=== PATIENT | male | born 1980 | race Caucasian/White ===

== ENCOUNTER 2019-12-01 07:04 | Day surgery (SDC) | payer OTHER ==
[2019-12-01] MEDS ORDERED: LACTATED RINGERS 1,000 ML IV ONE (07:08)
[2019-12-01] MEDS ORDERED: BUPIVACAINE 0.25% PF 30 ML VIAL ONE (07:14)
[2019-12-01] MEDS ORDERED: EPINEPHrine 1 MG/ML AMP ONE (07:14)
[2019-12-01] MEDS ORDERED: CEFAZOLIN SODIUM IN 0.9 % NACL 2 GM/100 ML BAG IV ONE (07:26)
--- NOTE | 2019-12-01 07:52 | ANESTHESIA ---
Pre-Anesthesia VS, & Labs - Diagnosis R ACL and meniscus tear - Procedure R AACL reconstruction, hamstring graft, possible meniscus repair Vital Signs: Temp Pulse Resp BP Pulse Ox 36.3 C L 83 12 136/98 H 98 12/01/19 07:08 12/01/19 07:08 12/01/19 07:08 12/01/19 07:08 12/01/19 07:08 Height 6 ft Weight (kg) 90.72 kg - NPO >8 hours Home Medications and Allergies Home Medications: Ambulatory Orders Divalproex Sodium [Depakote] 750 mg PO BID 11/26/19 SUMAtriptan succinate [Sumatriptan Succinate] 6 mg SQ 11/26/19 SUMAtriptan succinate [Sumatriptan Succinate] 100 mg PO 11/26/19 Divalproex Sodium [Depakote] 750 mg PO BID 11/26/19 SUMAtriptan succinate [Sumatriptan Succinate] 6 mg SQ 11/26/19 SUMAtriptan succinate [Sumatriptan Succinate] 100 mg PO 11/26/19 Allergies/Adverse Reactions: Allergies Allergy/AdvReac Type Severity Reaction Status Date / Time No Known Drug Allergies Allergy Verified 11/26/19 12:28 Anes History & Medical History - Anesthetic History Anesthesia Complications: reports: No previous complications Family history of Anesthesia Complications: Denies Family history of Malignant Hyperthermia: Denies - Medical History Cardiovascular: reports: Pulmonary embolism (2 weeks before ACL surgery) Pulmonary: reports: Sleep apnea, CPAP use Gastrointestinal: reports: None Urinary: reports: None Musculoskeletal: reports: Other Endocrine/Autoimmune: reports: None Skin: reports: None - Surgical History General: Appendectomy Eyes Ears Nose Throat (EENT): Tonsil/Adenoidectomy Orthopedic: ACL reconstruction, Other Exam General: Alert, Oriented x3, Cooperative Dental: WNL Mouth Openin Fingerbreadth Neck Mobility: Normal Mallampati classification: I Thyromental Distance: 4-6 cm Respiratory: Lungs clear, Normal breath sounds, No respiratory distress Cardiovascular: Regular rate Neurological: Normal speech Mental/Cognitive Status: Alert/Oriented X3, Normal for patient Cognitive Status: Within normal limits Plan Anesthesia Type: General, Femoral Block Consent for Procedure(s) Verified and Reviewed: Yes Code Status: Attempt Resuscitation ASA classification: 2-Mild systemic disease Is this case an emergency?: No
[2019-12-01] MEDS ORDERED: ROPIVACAINE 0.5% PF 20 ML AMPULE ONE (08:23)
[2019-12-01] MEDS ORDERED: LIDOCAINE-MPF 2% 5 ML VIAL IM ONE (08:38)
[2019-12-01] MEDS ORDERED: KETOROLAC 30 MG/ML VIAL IVP ONE (08:38)
[2019-12-01] MEDS ORDERED: PROPOFOL 200 MG/20 ML VIAL IVP ONE (08:38)
[2019-12-01] MEDS ORDERED: fentaNYL 100 MCG/2 ML VIAL IVP ONE (08:38)
[2019-12-01] MEDS ORDERED: ACETAMINOPHEN 1,000 MG/100 ML 100 ML IV ONE (08:38)
[2019-12-01] MEDS ORDERED: MIDAZOLAM 2 MG/2 ML VIAL IVP ONE (08:38)
[2019-12-01] MEDS ORDERED: ONDANSETRON 4 MG/2 ML VIAL IVP ONE (08:38)
[2019-12-01] MEDS ORDERED: EPINEPHrine 1 MG/ML AMP IVP ONE (09:06)
[2019-12-01] MEDS ORDERED: BUPIVACAINE 0.25% PF 30 ML VIAL SUBQ ONE ×2 (09:07)
[2019-12-01] MEDS ORDERED: ONDANSETRON 4 MG/2 ML VIAL IVP PRN (11:06)
[2019-12-01] MEDS: fentaNYL 100 MCG/2 ML VIAL ONE ×2 (11:06→11:11)
[2019-12-01] MEDS ORDERED: oxyCODONE 5 MG TABLET PO PRN (11:06)
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
[2019-12-01] MEDS: HYDROmorphone 1 MG/ML CARPUJECT ONE ×8 (11:23→11:59)
[2019-12-01] MEDS ORDERED: HYDROmorphone 1 MG/ML CARPUJECT ONE (11:56)
[2019-12-01] MEDS ORDERED: oxyCODONE 5 MG TABLET ONE (12:36)
[2019-12-01] MEDS ORDERED: ONDANSETRON 4 MG/2 ML VIAL ONE (12:36)
[2019-12-01] MEDS: LORazepam 2 MG/ML VIAL ONE ×2 (14:20→14:41)
[2019-12-01] MEDS ORDERED: LACTATED RINGERS 500 ML IV ONE (14:38)
[2019-12-01 14:49] VITALS: BP 122/95
== END 2019-12-01 07:05 | disposition home or self-care (01) ==
LOC: SDS 07:04
PROVIDERS: ATTEND Orthopaedic Surgery
DX: S83.511A Sprain of anterior cruciate ligament of right knee, initial encounter (principal); S83.241A Other tear of medial meniscus, current injury, right knee, initial encounter

== ENCOUNTER 2020-07-26 07:18 | Day surgery (SDC) | payer OTHER ==
[~2020-07-26 07:18] MED LIST: CEFAZOLIN SODIUM IN 0.9 % NACL 2 GM/100 ML BAG IV ONE
[2020-07-26] MEDS ORDERED: BUPIVACAINE 0.25% PF 30 ML VIAL ONE (07:36)
[2020-07-26] MEDS ORDERED: EPINEPHrine 1 MG/ML AMP ONE (07:36)
[2020-07-26] MEDS ORDERED: ePHEDrine 50 MG/ML VIAL IVP PRN ×2 (08:19→09:10)
[2020-07-26] MEDS ORDERED: MORPHINE 2 MG/ML CARPUJECT IVP PRN ×2 (08:19→09:10)
[2020-07-26] MEDS ORDERED: ONDANSETRON 4 MG/2 ML VIAL IVP PRN ×3 (08:19→10:57)
[2020-07-26] MEDS ORDERED: METOCLOPRAMIDE 10 MG/2 ML VIAL IVP PRN (08:19)
[2020-07-26] MEDS ORDERED: ATROPINE ABBOJECT 1 MG/10 ML SYRINGE IVP PRN ×2 (08:19→09:10)
[2020-07-26] MEDS ORDERED: NALOXONE 0.4 MG/ML VIAL IVP PRN ×2 (08:19→09:10)
--- NOTE | 2020-07-26 08:19 | ANESTHESIA ---
Pre-Anesthesia VS, & Labs - Diagnosis right knee meniscus tear - Procedure right knee arthroscopy, meniscus repair Vital Signs: Temp Pulse Resp BP Pulse Ox 36.8 C 75 16 154/109 H 100 07/26/20 07:40 07/26/20 07:40 07/26/20 07:40 07/26/20 07:40 07/26/20 07:40 Height: 6 ft Weight (kg): 97.8 kg Body Mass Index: 29.2 BMI Classification: Overweight - NPO >8 hours - Lab Results Lab results reviewed: Yes Home Medications and Allergies Home Medications: Ambulatory Orders Eszopiclone [Lunesta] 3 mg PO QPM 07/08/20 Sertraline HCl [Zoloft] 200 mg PO 07/08/20 buPROPion HCl [Bupropion Xl] 450 mg PO 07/08/20 SUMAtriptan succinate [Sumatriptan Succinate] 6 mg SQ 11/26/19 SUMAtriptan succinate [Sumatriptan Succinate] 100 mg PO 11/26/19 Eszopiclone [Lunesta] 3 mg PO QPM 07/08/20 Sertraline HCl [Zoloft] 200 mg PO 07/08/20 buPROPion HCl [Bupropion Xl] 450 mg PO 07/08/20 Allergies/Adverse Reactions: Allergies Allergy/AdvReac Type Severity Reaction Status Date / Time No Known Drug Allergies Allergy Verified 07/08/20 14:42 Anes History & Medical History - Anesthetic History Anesthesia Complications: reports: No previous complications Family history of Anesthesia Complications: Denies Family history of Malignant Hyperthermia: Denies - Medical History Cardiovascular: reports: Pulmonary embolism Pulmonary: reports: Sleep apnea, CPAP use Gastrointestinal: reports: None Urinary: reports: None Musculoskeletal: reports: Other Endocrine/Autoimmune: reports: None Skin: reports: None - Surgical History General: Appendectomy Eyes Ears Nose Throat (EENT): Tonsil/Adenoidectomy Orthopedic: ACL reconstruction Exam General: Alert, Oriented x3, Cooperative, No acute distress Dental: WNL Mouth Openin Fingerbreadth Neck Mobility: Normal Mallampati classification: I Respiratory: Lungs clear, Normal breath sounds, No respiratory distress, No accessory muscle use Cardiovascular: Regular rate, Normal S1, Normal S2, No murmurs Plan Anesthesia Type: General Consent for Procedure(s) Verified and Reviewed: Yes Code Status: Attempt Resuscitation ASA classification: 2-Mild systemic disease Is this case an emergency?: No
[2020-07-26] MEDS ORDERED: ePHEDrine 50 MG/ML VIAL IVP ONE (08:50)
[2020-07-26] MEDS ORDERED: ONDANSETRON 4 MG/2 ML VIAL IVP ONE (08:50)
[2020-07-26] MEDS ORDERED: DEXAMETHASONE 4 MG/ML VIAL IVP ONE (08:50)
[2020-07-26] MEDS ORDERED: fentaNYL 250 MCG/5 ML VIAL IVP ONE (08:50)
[2020-07-26] MEDS ORDERED: PROPOFOL 200 MG/20 ML VIAL IVP ONE (08:50)
[2020-07-26] MEDS ORDERED: MIDAZOLAM 2 MG/2 ML VIAL IVP ONE (08:50)
[2020-07-26] MEDS ORDERED: SUCCINYLCHOLINE 200 MG/10 ML VIAL IVP ONE (08:50)
[2020-07-26] MEDS ORDERED: KETOROLAC 30 MG/ML VIAL IVP ONE (08:50)
[2020-07-26] MEDS ORDERED: LACTATED RINGERS 1,000 ML IV SCH ×2 (09:00→10:00)
[2020-07-26] MEDS ORDERED: ACETAMINOPHEN 1,000 MG/100 ML 100 ML IV ONE (09:10)
[2020-07-26] MEDS ORDERED: HYDROmorphone 0.5 MG/0.5 ML SYRINGE IVP PRN (09:10)
[2020-07-26] MEDS ORDERED: fentaNYL 100 MCG/2 ML VIAL IVP PRN (09:10)
[2020-07-26] MEDS ORDERED: BUPIVACAINE 0.25% PF 30 ML VIAL SUBQ ONE ×2 (09:43)
[2020-07-26] MEDS ORDERED: EPINEPHrine 1 MG/ML AMP IR ONE (09:44)
[2020-07-26] MEDS ORDERED: LACTATED RINGERS 1,000 ML IV ONE (10:55)
[2020-07-26] MEDS ORDERED: oxyCODONE 5 MG TABLET PO PRN (10:57)
--- NOTE | 2020-07-26 11:01 | ANESTHESIA POST OP EVALUATION ---
Anesthesia Post Eval - Post Anesthesia Eval Vitals: Last Vital Signs Temp 36.8 C 07/26/20 07:40 Pulse 75 07/26/20 07:40 Resp 16 07/26/20 07:40 BP 154/109 H 07/26/20 07:40 Pulse Ox 100 07/26/20 07:40 CV Function Including HR & BP: positive: Stable Pain Control: positive: Satisfactory Nausea & Vomiting: positive: Negative Mental Status: positive: Baseline Respiratory Status: Airway Patent Hydration Status: Satisfactory Anesthesia Complications: positive: None
[2020-07-26] MEDS: fentaNYL 100 MCG/2 ML VIAL IVP PRN ×2 (11:05→11:24)
[2020-07-26] MEDS: HYDROmorphone 0.5 MG/0.5 ML SYRINGE IVP PRN ×4 (11:11→11:34)
[2020-07-26] MEDS ORDERED: HYDROmorphone 1 MG/ML CARPUJECT ONE (11:11)
[2020-07-26] MEDS ORDERED: fentaNYL 100 MCG/2 ML VIAL ONE (11:12)
--- NOTE | 2020-07-26 11:17 | OPERATIVE REPORT ---
Operative Report - Other Other Information/Narrative: Date of Surgery: 26 July 2020 Pre-Op Diagnosis: Right knee medial meniscus tear Procedure: Right knee arthroscopy with minimal ACL graft debridement and medial meniscus repair and lateral meniscus debridement. Loose body removal Postop Diagnosis: Right knee medial meniscus tear, right knee lateral meniscus tear, right knee ACL graft partial rupture. Loose body Primary Surgeon: Shaka Eagle Secondary Surgeon: Dilan Rome Complications: None Tourniquet Time: 77 minutes EBL: 5 cc Implants: FasT-Fix [id number] Indication For Surgery: 39-year-old male who had an ACL reconstruction with hamstring autograft 7 to 8 months ago. His convalescence had been excellent until 6 months postoperatively when he started to have mechanical symptoms in the knee with locking and popping requiring manual reduction by himself. Repeat MRI showed propagation of a prior medial meniscus tear and this was concerning for potential unstable medial meniscus tear. We discussed doing a repair versus an excision and I explained to him my thought process and the reasoning for each. The risks, benefits, and alternatives were discussed. Risks include pain, bleeding, infection, damage to nearby structures and cartilage, lack of symptom relief, need for further surgery, DVT, PE, stroke, and . Written consent was obtained. Examination Under Anesthesia: ROM equal to the contralateral side. Stable dial at 30 & 90 degrees. Stable to varus and valgus stressing at 0 & 30 degrees. Firm endpoint on Jenifer. Mild glide on Pivot shift. No mechanical sensation Arthroscopic Findings: Loose bodies -a small soft cartilage fragment was found in the notch and this was excised. Synovium -normal Patella cartilage -grade 1 softening with very minimal partial thickness findings Trochlear cartilage -normal Medial femoral condyle cartilage -8 mm wide by 12 mm long grade 2 shallow partial thickness lesion with other grade 1 softening Medial tibial plateau cartilage -grade 1 softening with a few linear areas of minimal cartilage loss Medial meniscus -full-thickness tear at the meniscocapsular junction from the posterior horn into the midpoint of the body. The entire meniscus was displaceable in front of the femoral condyle but reduced easily. At its baseline it sat in a reduced position. Anterior cruciate ligament -graft was largely intact. A few fibers of the anterior graft had torn mid substance and the frayed portions were debrided with a shaver Posterior cruciate ligament -normal Lateral femoral condyle cartilage -normal Lateral tibial plateau cartilage -normal Lateral meniscus -mild fraying on the free edge which was debrided Procedure in Detail: The patient was met in the pre-operative hold area on the day of the procedure. The operative extremity was signed and questions were answered. The patient was brought to the operating room and a general anesthetic was administered. Supine position was used and bony prominences were padded. An examination under anesthesia was performed. Standard prepping and draping was performed. A time out confirmed patient identification, laterality, procedure, allergies, antibiotics, and images. An Esmarch was used to exsanguinate the limb and the tourniquet was elevated to 250 mmHg. A standard diagnostic arthroscopy of the knee was performed through anterolateral and anteromedial portal sites. The anteromedial portal was created under direct visualization after localizing with a spinal needle. The findings can be found above. I then proceeded to use a shaver to debride the torn portions of the ACL graft. I then probed the graft extensively and found it to be stable. Shaver was then used to debride the free edge of the lateral meniscus to a stable base. I then debrided some synovium and removed a loose cartilage body from the anterior knee. A ball rasp was brought in and the meniscal tear was abraded extensively both starting from the medial capsular side and in the notch I brought the abrasion to meet each other in the middle. I then placed the ball rasp from the underside of the meniscus and again abraded. The tear was at the meniscocapsular junction and the decision was made to perform a repair to preserve the patient's anatomy and help prevent arthritis. Once sufficiently abraded I then placed a 5 all inside anchors starting centrally near the root and moving across the meniscus. I did utilize an accessory portal both laterally and medially to obtain the correct angles and reduce the meniscus appropriately. The central 4 anchors were placed in horizontal mattress fashion and the final one was in a vertical fashion at the very end of the tear in the anterior portion of the body. The meniscus was then probed extensively and found to be stable. In one location the meniscus had turned up slightly but when the medial femoral condyle compressed down onto it it was found to stabilized nicely. Final images were taken and all arthroscopic fluid and instruments were removed from the knee. The incisions were closed with buried monocryl sutures. Steri strips were applied. 20cc of 0.25% Marcaine without epinephrine was injected near the portal sites. A sterile dressing and compression stocking was placed. The patient was awakened and transferred to recovery in stable condition.
[2020-07-26] MEDS ORDERED: diazePAM 5 MG TABLET PO ONE (12:15)
[2020-07-26 12:31] VITALS: BP 141/81
[2020-07-26] MEDS ORDERED: oxyCODONE 5 MG TABLET ONE (12:38)
== END 2020-07-26 07:19 | disposition home or self-care (01) ==
LOC: SDS 07:18
PROVIDERS: ATTEND Orthopaedic Surgery
DX: M23.221 Derangement of posterior horn of medial meniscus due to old tear or injury, right knee (principal); T84.410A Breakdown (mechanical) of muscle and tendon graft, initial encounter; M23.41 Loose body in knee, right knee; M94.261 Chondromalacia, right knee; G47.33 Obstructive sleep apnea (adult) (pediatric); Z86.711 Personal history of pulmonary embolism; F41.9 Anxiety disorder, unspecified; F33.8 Other recurrent depressive disorders
CPT/HCPCS: 29882; 29999; A9270; C1713; J0330; J0690; J1170; J3010; J7120